=== PATIENT | female | born 1940 | race Caucasian/White ===

== ENCOUNTER 2016-11-26 13:43 | Emergency (ER) | payer OTHER, MEDICARE ==
[2016-11-26 14:04] VITALS: BMI 21.2
[2016-11-26 14:28] VITALS: TEMP 98.1
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
[2016-11-26] MEDS ORDERED: DIAZEPAM 5 MG TAB PO ONE (15:35)
[2016-11-26] MEDS ORDERED: IBUPROFEN 800 MG TAB PO ONE (16:11)
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
[2016-11-26 18:14] VITALS: BP 154/73; PULSE 86
== END 2016-11-26 18:14 | disposition home or self-care (01) ==
LOC: ED 13:43
DX: S20.219A Contusion of unspecified front wall of thorax, initial encounter (principal); V49.50XA Passenger injured in collision with unspecified motor vehicles in traffic accident, initial encounter; Y93.9 Activity, unspecified
CPT/HCPCS: 71020; 72070; 72110; 99285; J3490